=== PATIENT | male | born 1955 | race Caucasian/White ===

== ENCOUNTER 2018-12-11 17:19 | Emergency (ER) | payer OTHER ==
[2018-12-11] MEDS ORDERED: ONDANSETRON 4 MG/2 ML VIAL ONE (18:12)
[2018-12-11] MEDS ORDERED: NA CHLORIDE 0.9% 1,000 ML ONE ×2 (18:12→19:25)
[2018-12-11 18:39] LABS: Absolute Lymphocytes (CBC) 0.5 K/uL (0.7-4.9); Absolute Monocytes 0.4 K/uL (0.1-1.3); Absolute Neutrophil 9.8 K/uL (1.8-8.0); Basophils % 0.2 % (0-1.3); Eosinophils % 0.6 % (0-4.4); Hematocrit 48.4 % (39.6-49.0); Lymphocytes % 4.4 % (15.3-44.8); MPV 8.2 fL (7.6-11.3); Monocytes % 3.4 % (3.3-12.3); RBC Red Blood Cell Count 4.82 M/uL (4.33-5.43)
[2018-12-11 18:55] LABS: Albumin 3.8 g/dL (3.4-5.0); Bilirubin Direct 0.2 mg/dL (0-0.2); Bilirubin Total 0.7 mg/dL (0.2-1.0); Potassium 4.9 mmol/L (3.5-5.1); Protein, Total 7.4 g/dL (6.4-8.2)
[2018-12-11] MEDS ORDERED: PROMETHAZINE 25 MG/ML VIAL ONE (19:25)
[2018-12-11] MEDS ORDERED: DIPHENOX/ATROP SULF 1 TAB PO ONE (19:25)
--- NOTE | 2018-12-11 20:38 | ER ---
Nurse's Notes [facility] Name: Kumar Kong Age: 63 yrs Sex: Male : 1955 Arrival Date: 12/11/2018 Time: 17:23 Bed 7 Private MD: None, None Diagnosis: Diarrhea, unspecified Presentation: 12/11 17:33 Presenting complaint: Patient states: i vomited x 3 today and the last vomit was 45 hj mins ago; i had an episode of diarrhea [employer]: denies fever and chills. Transition of care: patient was not received from another setting of care. Onset of symptoms was December 11, 2018. Risk Assessment: Do you want to hurt yourself or someone else? Patient reports no desire to harm self or others. Initial Sepsis Screen: Does the patient meet any 2 criteria? No. Patient's initial sepsis screen is negative. Does the patient have a suspected source of infection? No. Patient's initial sepsis screen is negative. Care prior to arrival: None. 17:33 Method Of Arrival: Ambulatory 17:33 Acuity: FAVIO 3 hj Triage Assessment: 17:36 General: Appears in no apparent distress. uncomfortable, Behavior is calm, cooperative, hj appropriate for age. Pain: Denies pain. GI: Reports diarrhea, nausea, vomiting. Historical: - Allergies: 17:35 No Known Allergies; hj - Home Meds: 17:35 valsartan oral oral 1 tab once daily [Active]; hj - PMHx: 17:35 Hypertension; hj - PSHx: 17:35 None; hj - Immunization history:: Adult Immunizations not up to date. - Social history:: Smoking status: Patient uses tobacco products, Patient/guardian denies using alcohol. - Ebola Screening: : Patient negative for fever greater than or equal to 101.5 degrees Fahrenheit, and additional compatible Ebola Virus Disease symptoms Patient denies exposure to infectious person Patient denies travel to an Ebola-affected area in the 21 days before illness onset. - Family history:: not pertinent. - Hospitalizations: : No recent hospitalization is reported. Screenin:36 Abuse screen: Denies threats or abuse. Denies injuries from another. Nutritional hj screening: No deficits noted. Tuberculosis screening: No symptoms or risk factors identified. Fall Risk None identified. Assessment: 17:36 GI: Abdomen is non-distended. hj 17:36 General: Appears in no apparent distress. uncomfortable, Behavior is calm, cooperative, hj appropriate for age. Pain: Denies pain. Neuro: Level of Consciousness is awake, alert, obeys commands, Oriented to person, place, time, situation, Appropriate for age. Cardiovascular: Capillary refill < 3 seconds Patient's skin is warm and dry. Respiratory: Airway is patent Respiratory effort is even, unlabored, Respiratory pattern is regular, symmetrical. : No signs and/or symptoms were reported regarding the genitourinary system. EENT: No signs and/or symptoms were reported regarding the EENT system. Derm: No signs and/or symptoms reported regarding the dermatologic system. Musculoskeletal: No signs and/or symptoms reported regarding the musculoskeletal system. 17:48 Reassessment: Patient and/or family updated on plan of care and expected duration. Pain hj level reassessed. Patient is alert, oriented x 3, equal unlabored respirations, skin warm/dry/pink. awaiting provider to sign up;. 18:24 Reassessment: Patient and/or family updated on plan of care and expected duration. Pain hj level reassessed. Patient is alert, oriented x 3, equal unlabored respirations, skin warm/dry/pink. awaiting results and POC:. 19:00 General: Appears in no apparent distress. Behavior is calm, cooperative, appropriate ea for age. Pain: Denies pain. Neuro: Level of Consciousness is awake, alert, obeys commands, Oriented to person, place, time, situation, Appropriate for age. Cardiovascular: Patient's skin is warm and dry. Respiratory: Airway is patent Respiratory effort is even, unlabored, Respiratory pattern is regular, symmetrical. GI: Abdomen is non-distended. Derm: No signs and/or symptoms reported regarding the dermatologic system. Musculoskeletal: No signs and/or symptoms reported regarding the musculoskeletal system. 20:30 Reassessment: Patient is alert, oriented x 3, equal unlabored respirations, skin lp1 warm/dry/pink. Patient states feeling better. Patient states symptoms have improved. Vital Signs: 17:37 BP 137 / 101; Pulse 85; Resp 18; Temp 97.6(O); Pulse Ox 100% ; Weight 86.18 kg; Height hj 5 ft. 7 in. (170.18 cm); Pain 0/10; 18:10 BP 117 / 90; Pulse 73; Resp 16; Pulse Ox 100% on R/A; Pain 0/10; iw 19:41 BP 139 / 91; Pulse 76; Resp 18; Pulse Ox 97% on R/A; ea 20:30 BP 134 / 80; Pulse 79; Resp 18; Pulse Ox 97% on R/A; lp1 17:37 Body Mass Index 29.76 (86.18 kg, 170.18 cm) ED Course: 17:23 Patient arrived in ED. mr 17:23 None, None is Private Physician. mr 17:31 Tina Rai, RN is Primary Nurse. iw 17:34 Triage completed. hj 17:36 Arm band placed on right wrist. hj 17:37 Patient has correct armband on for positive identification. Placed in gown. Bed in low hj position. Call light in reach. Side rails up X 1. 17:46 Tristin Roberts, LUCÍA is Primary Nurse. hj 17:47 Initial lab(s) drawn, by ED staff. Inserted saline lock: 20 gauge in right antecubital hj area, using aseptic technique. ,using aseptic technique. [facility] tech Blood collected. 17:49 Jos Martinez MD is Attending Physician. rn 19:10 Attending Physician role handed off by Jos Martinez MD ma2 19:10 Jose Mcknight MD is Attending Physician. ma2 20:54 No provider procedures requiring assistance completed. IV discontinued, No lp1 redness/swelling at site. Pressure dressing applied. Administered Medications: 17:00 Drug: Zofran 4 mg Route: IVP; Site: right antecubital; hj 18:05 Follow up: Response: No adverse reaction; Nausea is decreased hj 17:57 Drug: NS 0.9% 1000 ml Route: IV; Rate: 1000 ml; Site: right antecubital; hj 18:05 Follow up: IV Status: Infusion continued hj 19:20 Drug: Phenergan 12.5 mg Route: IVP; Site: right antecubital; ea 20:30 Follow up: Response: Marked relief of symptoms lp1 19:20 Drug: LoMOTIL 2 tabs Route: PO; ea 20:30 Follow up: Response: No adverse reaction lp1 19:20 Drug: NS 0.9% 1000 ml Route: IV; Rate: 1000 ml; Site: right antecubital; inés 20:55 Follow up: IV Status: Completed infusion; IV Intake: 1000ml lp1 Intake: 20:55 IV: 1000ml; Total: 1000ml. lp1 Outcome: 20:37 Discharge ordered by . joleen 20:54 Discharged to home ambulatory, with significant other. lp1 20:54 Condition: good 20:54 Discharge instructions given to patient, Instructed on discharge instructions, follow up and referral plans. medication usage, Demonstrated understanding of instructions, follow-up care, medications, Prescriptions given X 1. 20:56 Patient left the ED. lp1 Signatures: Cecilia Sommers Irene, RN Jos Perez MD MD rn Pena, Laura, RN RN lp1 Tristin Roberts, Swapna Michel RN, RN RN ea Alzahri, Mohammad, MD MD ma2
--- NOTE | 2018-12-11 20:38 | EDPHYS ---
Physician Documentation [facility] Name: Kumar Kong Age: 63 yrs Sex: Male : 1955 Arrival Date: 12/11/2018 Time: 17:23 Bed 7 Private MD: None, None ED Physician Jose Mcknight HPI: 12/11 17:58 This 63 yrs old Male presents to ER via Ambulatory with complaints of rn Vomiting/Diarrhea. 17:58 The patient presents to the emergency department with nausea, vomiting, diarrhea. rn Onset: The symptoms/episode began/occurred this morning. 18:00 Possible causes: unknown. The symptoms are aggravated by nothing. The symptoms are rn alleviated by nothing. Severity of symptoms: At their worst the symptoms were moderate in the emergency department the symptoms are unchanged. The patient has not experienced similar symptoms in the past. Reports felt fine this AM, ate a taco, reports since then has been throwing up, + diarrhea, non-bloody, + abd cramping that comes and goes, non-focal, and generalized weakness. No table to hold stuff done, just drinking 7up but throwing it up. No known sick contacts. NO fever. . Historical: - Allergies: 17:35 No Known Allergies; hj - Home Meds: 17:35 valsartan oral oral 1 tab once daily [Active]; hj - PMHx: 17:35 Hypertension; hj - PSHx: 17:35 None; hj - Immunization history:: Adult Immunizations not up to date. - Social history:: Smoking status: Patient uses tobacco products, Patient/guardian denies using alcohol. - Ebola Screening: : Patient negative for fever greater than or equal to 101.5 degrees Fahrenheit, and additional compatible Ebola Virus Disease symptoms Patient denies exposure to infectious person Patient denies travel to an Ebola-affected area in the 21 days before illness onset. - Family history:: not pertinent. - Hospitalizations: : No recent hospitalization is reported. ROS: 18:00 Constitutional: Negative for fever, chills Eyes: Negative for injury, pain, redness, rn and discharge, Neck: Negative for injury, pain, and swelling, Cardiovascular: Negative for chest pain, palpitations, and edema, Respiratory: Negative for shortness of breath, cough, wheezing, and pleuritic chest pain, Abdomen/GI: + nausea/vomiting/diarrhea MS/Extremity: Negative for injury and deformity, Skin: Negative for injury, rash, and discoloration, Neuro: Negative for headache, numbness, tingling, and seizure. Exam: 18:00 Constitutional: This is a well developed, well nourished patient who is awake, alert, rn and in no acute distress. Head/Face: Normocephalic, atraumatic. Eyes: Periorbital areas with no swelling, redness, or edema. ENT: dry MM Cardiovascular: Tachycardic, regular, no murmur Respiratory: Lungs have equal breath sounds bilaterally, clear to auscultation . No increased work of breathing, no retractions or nasal flaring. Abdomen/GI: soft, non-tender Skin: Warm, dry, no evidence of cellulitis. MS/ Extremity: Pulses equal, no cyanosis. Neurovascular intact. Full, normal range of motion. Equal circumference. Neuro: Awake and alert, GCS 15, oriented to person, place, time, and situation. Cranial nerves II-XII grossly intact. Motor strength 5/5 in all extremities. Sensory grossly intact. Vital Signs: 17:37 BP 137 / 101; Pulse 85; Resp 18; Temp 97.6(O); Pulse Ox 100% ; Weight 86.18 kg; Height hj 5 ft. 7 in. (170.18 cm); Pain 0/10; 18:10 BP 117 / 90; Pulse 73; Resp 16; Pulse Ox 100% on R/A; Pain 0/10; iw 19:41 BP 139 / 91; Pulse 76; Resp 18; Pulse Ox 97% on R/A; ea 20:30 BP 134 / 80; Pulse 79; Resp 18; Pulse Ox 97% on R/A; lp1 17:37 Body Mass Index 29.76 (86.18 kg, 170.18 cm) MDM: 17:49 Patient medically screened. rn 18:58 ED course: Signed out to Dr. Mcknight, labs ok, + known fatty liver, no current abd rn pain, plan is to dc home with prn zofran if feels better, if any abd pain returns plan is to get CT abdomen. . 20:36 Differential diagnosis: Nonspecific abd pain, gastritis, viral gastroenteritis, ma2 gastroenteritis. Data reviewed: vital signs, nurses notes. Counseling: I had a detailed discussion with the patient and/or guardian regarding: the historical points, exam findings, and any diagnostic results supporting the discharge/admit diagnosis, the presence of at least one elevated blood pressure reading (>120/80) during this emergency department visit, the need for outpatient follow up. Response to treatment: the patient's symptoms have resolved after treatment. ED course: syx resolved . 12/11 17:56 Order name: Basic Metabolic Panel; Complete Time: 18:58 rn 12/11 17:56 Order name: CBC with Diff; Complete Time: 18:47 rn 12/11 17:56 Order name: Hepatic Function; Complete Time: 18:58 rn 12/11 17:56 Order name: Lipase; Complete Time: 18:58 rn 12/11 17:56 Order name: IV Saline Lock; Complete Time: 17:56 rn 12/11 17:56 Order name: Labs collected and sent; Complete Time: 18:00 rn 12/11 18:26 Order name: Labs - recollect needed; Complete Time: 18:29 eb Administered Medications: 17:00 Drug: Zofran 4 mg Route: IVP; Site: right antecubital; hj 18:05 Follow up: Response: No adverse reaction; Nausea is decreased hj 17:57 Drug: NS 0.9% 1000 ml Route: IV; Rate: 1000 ml; Site: right antecubital; hj 18:05 Follow up: IV Status: Infusion continued hj 19:20 Drug: Phenergan 12.5 mg Route: IVP; Site: right antecubital; ea 20:30 Follow up: Response: Marked relief of symptoms lp1 19:20 Drug: LoMOTIL 2 tabs Route: PO; ea 20:30 Follow up: Response: No adverse reaction lp1 19:20 Drug: NS 0.9% 1000 ml Route: IV; Rate: 1000 ml; Site: right antecubital; ea 20:55 Follow up: IV Status: Completed infusion; IV Intake: 1000ml lp1 Disposition: 12/11/18 20:37 Discharged to Home. Impression: Diarrhea, unspecified. - Condition is Stable. - Discharge Instructions: Food Choices to Help Relieve Diarrhea, Adult. - Prescriptions for Zofran 4 mg Oral Tablet - take 1 tablet by ORAL route every 12 hours As needed; 20 tablet. - Medication Reconciliation Form, Thank You Letter, Antibiotic Education, Prescription Opioid Use form. - Follow up: Private Physician; When: Tomorrow; Reason: Continuance of care. Signatures: Dispatcher [employer] EDJos Crawford MD MD rn Pena, Laura, RN RN lp1 Tristin Roberts RN RN Swapna Carrasquillo RN RN ea Alzahri, Mohammad, MD MD ma2 Sophy Schneider Corrections: (The following items were deleted from the chart) 20:56 20:37 12/11/2018 20:37 Discharged to Home. Impression: Diarrhea, unspecified. Condition lp1 is Stable. Forms are Medication Reconciliation Form, Thank You Letter, Antibiotic Education, Prescription Opioid Use. Follow up: Private Physician; When: Tomorrow; Reason: Continuance of care. ma2
== END 2018-12-11 20:56 | disposition home or self-care (01) ==
LOC: ER 17:19
DX: R19.7 Diarrhea, unspecified (principal); I10 Essential (primary) hypertension; Z72.0 Tobacco use
CPT/HCPCS: 36415; 80048; 80076; 83690; 85025; 96361; 96374; 96375; 99284; J2405; J2550; J7030